=== PATIENT | male | born 1990 | race Native Hawaiian/Other Pacific Islander ===

== ENCOUNTER → 2016-03-18 | Outpatient (CLI) | payer OTHER ==
--- NOTE | 2016-03-18 12:46 | MR ---
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 Low back pain for 15 months into right le g per patient. TECHNIQUE: Multiplanar, multisequence imaging of the lumbar spine is performed without IV contrast. FINDINGS: Sagittal images of the lumbar spine show vertebral body heights and alignment to appear sat isfactory. Multilevel multiple Schmorl nodes are redemonstrated. There is redemonstration disc desicc ation with moderate disc space narrowing L4-L5 level. No significant posterior disc herniations are s een on sagittal images. Otherwise the intervertebral discs demonstrate normal heights and hydration. The conus medullaris is normal in position and signal ending at superior L1 vertebral body level. T he bone marrow signal intensity is within normal limits. No significant spurring is seen. Axial images at T12-L1 level redemonstrate mild broad-based right paracentral disc protrusion minimal ly effacing anterior thecal sac, bilateral neural foramina are patent. No significant change from lg or study is seen. Axial images at the L1-L2 level show broad-based central disc protrusion minimally effacing anterior thecal sac, bilateral neural foramina are patent. No significant change from prior study is seen. Axial images at L2-L3 level show mild broad based posterior disc protrusion minimally effacing anteri or thecal sac, bilateral neural foramina are patent. No significant change from prior study is seen. Axial images at L3-L4 level are felt within normal limits. Axial images at L4-L5 level show broad based left paracentral disc protrusion with slight superior ex trusion component seen best on sagittal image 7 effacing anterolateral thecal sac, there is stable mi nimal bilateral anterior inferior neural foraminal narrowing. Axial images at L5-S1 level are felt within normal limits. No suspicious retroperitoneal findings are evident. 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 No significant change from prior MRI is seen.
== END | disposition home or self-care (01) ==
LOC: RADMRIMAIN 06:31
PROVIDERS: ATTEND Family Medicine
DX: M47.816 Spondylosis without myelopathy or radiculopathy, lumbar region (principal)
CPT/HCPCS: 72148